=== PATIENT | male | born 1995 ===

== ENCOUNTER 2024-04-15 15:10 | Emergency (ER) | payer OTHER, SELFPAY ==
--- NOTE | ~2024-04-15 | XR_ITS ---
EXAMINATION: XR HUMERUS, RIGHT CLINICAL INFORMATION: mid pain after fall COMPARISON: None available. TECHNIQUE: AP and lateral views of the right humerus. FINDINGS: The bones and soft tissues are normal. No fracture. Imaged portions of the shoulder and elbow are unremarkable. XR/XR humerus RT IMPRESSION: Normal right humerus. Electronically signed by: Saleem Alcaraz MD 04/15/2024 04:38 PM EST
[2024-04-15 15:58] VITALS: BP 125/86; PULSE 85; RESP 16; TEMP 36.7; O2SAT 99; BMI 27.8
--- NOTE | 2024-04-15 16:04 | ED.EXTPRO ---
HPI - Extremity Problem General Chief complaint: Extremity Injury, Upper Stated complaint: fall, shoulder inj Time Seen by Provider: 04/15/24 20:00 Source: patient, RN notes reviewed and old records reviewed Mode of arrival: ambulatory Limitations: no limitations History of Present Illness ED Provider: Michael HPI Narrative: Patient is a 28 year old male presenting with complaint of right upper arm pain after a slip and fall. States he did not fall all the way to the ground. Denies head strike, LOC, is not anticoagulated. Denies numbness/tingling. Complaint: extremity pain Onset (ago): day(s) Location: right and upper extremity Quality: aching Radiation: none Related Data Previous Rx's ?Medication ?Instructions ?Recorded lidocaine 5 % topical patch 1 patch topical DAILY #15 ea 04/15/24 naproxen 500 mg tablet 500 mg PO BID #28 tabs 04/15/24 Allergies Allergy/AdvReac Type Severity Reaction Status Date / Time kiwi Allergy Numbness Verified 04/15/24 16:01 Review of Systems Review of Systems: As per HPI Yes all other systems are reviewed and are negative Constitutional: Constitutional: Reports as per HPI Physical Exam Vital Signs: Vital Signs: Last Vital Signs Temp 98.1 F 04/15/24 15:58 Pulse 85 04/15/24 15:58 Resp 16 04/15/24 15:58 BP 125/86 04/15/24 15:58 Pulse Ox 99 04/15/24 15:58 O2 Del Method Room Air 04/15/24 15:58 BMI result Body Mass Index 27.8 Vital signs have been reviewed and appear to be correct. Blood pressure normal. Heart rate normal. Respiratory rate normal. Temperature normal. Oxygen saturation normal. Const: General: cooperative, healthy appearing and no acute distress Orientation/consciousness: oriented to person, oriented to place, oriented to time and patient oriented x3 Limitations: no limitations HEENT: Head: Yes normocephalic and Yes atraumatic Ears: external ears normal General nose exam: Normal external nose present Face and sinus: Yes face symmetric Mouth: oropharynx normal and moist mucous membranes Throat: Yes uvula midline Eyes: Pupils: Equal, round and reactive pupils present Neck: Neck: Yes normal visual inspection and Yes supple Resp: Effort & Inspection: normal respiratory effort and able to speak in complete sentences Auscultation: clear to auscultation bilaterally Cardio: Rate: regular rate Rhythm: regular rhythm Heart sounds: S1 normal heart sound present and S2 normal heart sound present GI: Palpation (GI): Soft to palpation and nontender Auscultation: normoactive bowel sounds : General: Yes no CVA tenderness Back/Spine/Pelvis: Back: no CVA tenderness Skin: General skin exam: elasticity normal and turgor normal Neuro: General: oriented to person, oriented to place, oriented to time, patient oriented x3, moves all extremities, no focal motor deficits and CN's II-XI intact bilaterally Cranial nerves: Yes Equal, round and reactive pupils present Cognition (Neuro): normal cognition Extrem: General: Yes full ROM, Yes no pedal edema and Yes no calf tenderness Right upper extremity: normal to inspection, full ROM, normal capillary refill, shoulder/upper arm Details: normal to inspection, tenderness Location: of the mid-shaft humerus and normal ROM; no swelling and no ecchymosis and Extremity exam: right hand Details: vascular exam Details: radial pulse present and normal capillary refill Psych: Mental Status: mental status grossly normal Affect: normal affect Thought process: Normal thought process present Course Course Course Narrative: This is a rapid medical exam performed by Karthik Rodriguez NP: Additional HPI, ROS, PE not included below will be deferred to primary provider. Patient is a 28 year old male presenting with complaint of right upper arm pain after a slip and fall. States he did not fall all the way to the ground. Denies head strike, LOC, is not anticoagulated. Able to ROM arm. Plan: xray Medical Decision Making Medical Decision Making MDM Narrative: Patient is a 28 year old male presenting with complaint of right upper arm pain after a slip and fall. On exam patient is awake, A+Ox3, VS WNL, afebrile, normal neurological exam without focal deficits, physical exam findings as above. Given reported symptoms and physical exam findings, initial differential includes but is not limited to contusion, fracture, muscle strain. X-ray right humerus notable for no acute fracture. My interpretation is in agreement with the radiologist's interpretation. Results discussed with patient and all questions answered. Will send prescriptions for naproxen and lidocaine patches, will refer to ortho for any ongoing symptoms. Return precautions discussed. Patient verbalized understanding of and agreement with plan. Differential Diagnosis Differential Diagnoses: The differential diagnosis associated with the presentation includes As per [facility] Independent Interpretation I performed an independent interpretation of an: Plain X-Ray Interpretation: No acute fracture right humerus Radiology Impression Discussion of test interpretation with radiology: I have reviewed the radiologist's reading. Radiologist Impression: XR/XR humerus RT IMPRESSION: Normal right humerus. External Record Review External record reviewed: Inpatient record, Office record and Outpatient record Prescription Management I considered prescription management with: Pain Medication Discharge Plan Discharge Clinical Impression: Arm pain, right Patient Disposition: Home, Self-Care Instructions: Contusion in Adults (ED), Arm Pain (ED) Additional Instructions: You were evaluated in the emergency department today for arm pain after a fall. Your x-rays did not show any evidence of fractures. You are being prescribed naproxen to decreased inflammation. You are also being prescribed topical lidocaine patches which you can wear for up to 12 hours in a 24 hour period. You can also apply cool compresses to the area. If your pain persists, follow up with orthopedics. Return to the emergency department if you develop worsening pain, new weakness, numbness, tingling, change of color to your arm or any other new or concerning symptoms. Prescriptions: New naproxen 500 mg tablet 500 mg PO BID Qty: 28 0RF lidocaine 5 % adhesive patch,medicated 1 patch topical DAILY Qty: 15 0RF Rx Instructions: leave on most painful area for up to 12 hrs Referrals: [facility] [Provider Group] Print Language: [place]i
[2024-04-15 20:20] VITALS: BP 125/86; PULSE 85; RESP 16; TEMP 36.7; O2SAT 99
== END 2024-04-15 20:21 | disposition home or self-care (01) ==
PROVIDERS: Emergency Provider Student in an Organized Health Care Education/Training Program; PCP Internal Medicine
DX: S49.91XA Unspecified injury of right shoulder and upper arm, initial encounter (principal); M79.601 Pain in right arm; W01.0XXA Fall on same level from slipping, tripping and stumbling without subsequent striking against object, initial encounter; Y93.9 Activity, unspecified; Y92.89 Other specified places as the place of occurrence of the external cause; Y99.8 Other external cause status
CPT/HCPCS: 73060; 99282; 99283

== ENCOUNTER → 2024-04-15 16:04 | Outpatient (BNV) | payer SELFPAY | PROVIDERS: Visit Provider Radiology Diagnostic Radiology | DX: M79.621 Pain in right upper arm (principal) | CPT/HCPCS: 73060 ==